=== PATIENT | female | born 1970 | race Caucasian/White ===

== ENCOUNTER 2018-08-17 15:04 | Emergency (ER) | payer MEDICAID ==
[~2018-08-17] VITALS: Ht 149.9 cm; Wt 82.0 kg
[2018-08-17] MEDS ORDERED: OXYCODONE HCL/ACETAMINOPHEN 5/325MG TABLET PO ONE (15:45)
[2018-08-17 17:53] VITALS: BP 107/66
== END 2018-08-17 18:00 | disposition home or self-care (01) ==
LOC: ER 15:37
DX: S00.83XA Contusion of other part of head, initial encounter (principal); S40.012A Contusion of left shoulder, initial encounter; Y07.59 Other non-family member, perpetrator of maltreatment and neglect; Y04.2XXA Assault by strike against or bumped into by another person, initial encounter; Y93.89 Activity, other specified; Y92.098 Other place in other non-institutional residence as the place of occurrence of the external cause
CPT/HCPCS: 70486; 73030; 81025; 99284

== ENCOUNTER 2019-05-31 00:26 | Emergency (ER) | payer MEDICAID ==
[~2019-05-31] VITALS: Ht 149.9 cm; Wt 95.0 kg
[2019-05-31] MEDS ORDERED: IBUPROFEN 600MG TABLET PO ONE (01:15)
[2019-05-31 01:16] VITALS: BP 141/86
== END 2019-05-31 01:23 | disposition home or self-care (01) ==
LOC: ER 00:26
DX: B00.1 Herpesviral vesicular dermatitis (principal); R03.0 Elevated blood-pressure reading, without diagnosis of hypertension
CPT/HCPCS: 99283

== ENCOUNTER 2019-11-08 02:19 | Emergency (ER) | payer MEDICAID ==
[~2019-11-08] VITALS: Ht 149.9 cm; Wt 96.0 kg
[2019-11-08 02:29] VITALS: BP 132/83
[2019-11-08] MEDS ORDERED: ACETAMINOPHEN 325MG TABLET PO ONE (03:30)
== END 2019-11-08 04:58 | disposition home or self-care (01) ==
LOC: ER 02:19
DX: S09.8XXA Other specified injuries of head, initial encounter (principal); S69.82XA Other specified injuries of left wrist, hand and finger(s), initial encounter; Y04.2XXA Assault by strike against or bumped into by another person, initial encounter; Y93.01 Activity, walking, marching and hiking; Y92.480 Sidewalk as the place of occurrence of the external cause
CPT/HCPCS: 73130; 81025; 99284

== ENCOUNTER 2020-11-17 06:47 | Emergency (ER) | payer MEDICAID ==
[~2020-11-17] VITALS: Ht 149.9 cm; Wt 95.0 kg
[2020-11-17 06:52] VITALS: BP 120/66
[2020-11-17] MEDS ORDERED: ONDANSETRON HCL 4MG TABLET PO ONE (08:00)
[2020-11-17] MEDS ORDERED: TOPUD PO (09:24)
== END 2020-11-17 09:37 | disposition home or self-care (01) ==
LOC: ER 06:47
DX: R07.2 Precordial pain (principal); R06.02 Shortness of breath; Z20.822 Contact with and (suspected) exposure to COVID-19; R05 Cough; R09.89 Other specified symptoms and signs involving the circulatory and respiratory systems; R11.0 Nausea; J45.909 Unspecified asthma, uncomplicated; M79.7 Fibromyalgia; Z86.59 Personal history of other mental and behavioral disorders
CPT/HCPCS: 71045; 87070; 87430; 93005; 99285; C9803; Q0162; U0003; U0005

== ENCOUNTER 2020-12-25 16:17 | Emergency (ER) | payer MEDICAID ==
[~2020-12-25] VITALS: Ht 149.9 cm; Wt 94.0 kg
[~2020-12-25 16:17] MED LIST: TOPUD PO
[2020-12-25] MEDS ORDERED: TETANUS, DIPHTHERIA, PERTUSSIS VAC/PF 0.5ML (>10YR OLD) IM ONE (17:15)
[2020-12-25] MEDS ORDERED: ACETAMINOPHEN 325MG TABLET PO ONE (17:15)
[2020-12-25] MEDS ORDERED: TOPUD MT (17:56)
[2020-12-25 18:31] VITALS: BP 125/73
== END 2020-12-25 18:32 | disposition home or self-care (01) ==
LOC: ER 16:17
DX: S61.216A Laceration without foreign body of right little finger without damage to nail, initial encounter (principal); W22.8XXA Striking against or struck by other objects, initial encounter; Y93.89 Activity, other specified; Y92.89 Other specified places as the place of occurrence of the external cause
CPT/HCPCS: 12001; 73130; 81025; 90471; 90715; 99283; A4217

== ENCOUNTER 2021-11-08 14:05 | Emergency (ER) | payer MEDICAID, OTHER ==
[~2021-11-08] VITALS: Ht 149.9 cm; Wt 91.0 kg
[~2021-11-08 14:05] MED LIST changes: +TOPUD MT
[2021-11-08] MEDS ORDERED: LIDOCAINE HCL 1% 20ML VIAL (Pyxis) INJ INFIL ONE (19:00)
[2021-11-08 20:30] VITALS: BP 135/85
== END 2021-11-08 20:30 | disposition home or self-care (01) ==
LOC: ER 14:05
DX: S99.922A Unspecified injury of left foot, initial encounter (principal); X58.XXXA Exposure to other specified factors, initial encounter; Y93.89 Activity, other specified; Y92.89 Other specified places as the place of occurrence of the external cause; Y99.8 Other external cause status
CPT/HCPCS: 73660; 99283